=== PATIENT | male | born 1935 | race Native Hawaiian/Other Pacific Islander ===

== ENCOUNTER 2018-08-05 09:20 | Outpatient (CLI) | payer OTHER | END 2018-08-05 19:12 | disposition home or self-care (01) | LOC: CT 09:20 | DX: M50.33 Other cervical disc degeneration, cervicothoracic region (principal); M47.892 Other spondylosis, cervical region; M54.12 Radiculopathy, cervical region; M48.02 Spinal stenosis, cervical region ==

== ENCOUNTER 2020-02-29 14:51 | Outpatient (CLI) | payer OTHER | END 2020-02-29 21:18 | disposition home or self-care (01) | LOC: LAB 14:51 | PROVIDERS: ATTEND Orthopaedic Surgery | DX: Z47.89 Encounter for other orthopedic aftercare (principal); S72.91XD Unspecified fracture of right femur, subsequent encounter for closed fracture with routine healing; N40.1 Benign prostatic hyperplasia with lower urinary tract symptoms; R06.09 Other forms of dyspnea | CPT/HCPCS: 85049 ==

== ENCOUNTER 2020-03-07 13:40 | Outpatient (CLI) | payer OTHER | END 2020-03-07 21:40 | disposition home or self-care (01) | LOC: LAB 13:40 | PROVIDERS: ATTEND Orthopaedic Surgery | DX: S72.91XD Unspecified fracture of right femur, subsequent encounter for closed fracture with routine healing (principal); Z47.89 Encounter for other orthopedic aftercare; N40.1 Benign prostatic hyperplasia with lower urinary tract symptoms; R06.09 Other forms of dyspnea | CPT/HCPCS: 85049 ==